=== PATIENT | female | born 2000 | race Caucasian/White ===

== ENCOUNTER 2023-11-18 06:40 | Emergency (ER) | payer MEDICAID, SELFPAY ==
[2023-11-18] VITALS (17 sets, daily range): BP systolic 107–125; BP diastolic 66–78; PULSE 84–110; RESP 17–34; TEMP 37.4; O2SAT 98–100
--- NOTE | ~2023-11-18 | CT_ITS ---
CT of the Abdomen and Pelvis: Indication: Abdominal pain Technique: 2.5 mm axial scans were obtained through the abdomen and pelvis following intravenous adm inistration of 100 cc of Omnipaque 350. Dose reduction technique was used on this scan by utilizing a utomated exposure control and iterative reconstruction technique. The dose-length product (DLP) was 5 29.60 mGy-cm. Findings: Scans through the lung bases are unremarkable. The liver, spleen, pancreas, adrenals and kidneys are within normal limits. Cholecystectomy clips are present. No evidence of aortic aneurysm. No lymphadenopathy. No bowel obstruction or bowel wall thickening. There is no evidence to suggest acute appendicitis. Images through the pelvis were performed. Urinary bladder unremarkable. 2.5 cm left ovarian cyst pres ent. No ascites. Impression: 2.5 cm left ovarian cyst. Reviewed, dictated and finalized at location . Impression: 2.5 cm left ovarian cyst.
[2023-11-18 07:14] LABS: Basophils Percent Auto 0.3 % (0.2-1.2); Eosinophils Absolute Auto 0.1 K/mm3 (0-0.3); Eosinophils Percent Auto 0.8 % (0-4.4); Hematocrit 39.5 % (37.0-47.0); Hemoglobin 12.6 g/dL (12.0-15.0); Immature Granulocyte Absolute 0.03 K/mm3 (0.00-0.031); Immature Granulocyte Percent A 0.3 % (0-0.5); Lymphocytes Absolute Auto 2.69 K/mm3 (0.9-3.2); Lymphocytes Percent Auto 22.8 % (18.3-44.2); Mean Corpuscular HGB Conc 31.9 g/dl (32-36); Mean Corpuscular Hemoglobin 27.7 pg (26-34); Mean Corpuscular Volume 86.8 fl (80-100); Mean Platelet Volume 10.2 fl (7.4-10.4); Monocytes Absolute Auto 1.2 K/mm3 (0.1-0.6); Monocytes Percent Auto 9.8 % (2.6-8.5); Neutrophils Absolute Auto 7.8 K/mm3 (1.3-6.7); Platelet Count Result 292 k/mm3 (150-375); Red Blood Count 4.55 M/mm3 (4.2-5.4); White Blood Count 11.8 K/mm3 (4.5-10.0)
[2023-11-18 07:23] LABS: Alanine Aminotransferase 11 U/L (6-35); Albumin Level 4.5 g/dL (3.5-5.1); Alkaline Phosphatase 77 U/L (38-126); Anion Gap 9 mmol/L (4-12); Aspartate Amino Transferase 18 U/L (14-36); Bilirubin,Total 0.5 mg/dL (0.2-1.3); Blood Urea Nitrogen 10 mg/dL (7-17); Calcium 8.9 mg/dL (8.4-10.2); Carbon Dioxide 23 mmol/L (22-30); Chloride 109 mmol/L (98-107); Estimated CRCL calculation 104 ml/min; Estimated Glomerular Filt Rate > 60; Glucose 117 mg/dL (65-110); Lipase 46 U/L (23-300); Potassium 3.7 mmol/L (3.4-5.0); Sodium 141 mmol/L (137-145)
[2023-11-18 07:27] LABS: Appearance Urine Cloudy (Clear); Bacteria Urine 1+ /hpf; Bilirubin Urine Negative (Negative); Blood Urine 3+ (Negative); Color Urine Dark Yellow (Yellow); Glucose Urine UA Negative (Negative); Ketones Urine Trace mg/dL (Negative); Leukocyte Esterase Ur 2+ LEU/UL (Negative); Need Manual Microscopic Reviewed; Nitrate Urine Negative (Negative); Non Pathogenic Casts 0-2; Protein Urine 1+ mg/dL (Negative); RBC Urine 21-50 /hpf (0-2); Specific Grav Ur 1.028 (1.001-1.035); Squamous Epithelial Cell Urine Moderate /hpf (Few); WBC Urine 21-50 /hpf (0-3); pH Urine 5.5 (5.0-9.0)
[2023-11-18 07:29] LABS: Add Urine Microscopic? YES
--- NOTE | 2023-11-18 08:01 | ED.ABDPAIN ---
HPI - Abdominal Pain General Chief Complaint: Abdominal Pain Stated Complaint: R flank/abd pain Time Seen by Provider: 11/18/23 07:58 Source: patient and family Mode of arrival: ambulatory Limitations: no limitations History of Present Illness HPI narrative: 23-year-old female presents with right upper quadrant and right back/flank pain. Patient states pain began in her right upper quadrant approximately 3 days ago and radiates to her back/right flank almost like she is wearing a half belt. No associated nausea, vomiting. No fevers or jaundice. Her last bowel movement was last night and she denies any diarrhea, constipation, or bleeding. She has irregular menstrual cycles at baseline and is not unusual for her to have 2 menstrual cycles per month. This has happened this month as she had period at the beginning of the month but also started another period Yesterday. She had a cholecystectomy she was approximately 19 years old in [facility] in [place] because she states her gallbladder wasn't working. She has been trialing 400 mg b.i.d. ibuprofen and Tylenol. she denies any hematuria, urgency, frequency, or dysuria. 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 Related Data Allergies Allergy/AdvReac Type Severity Reaction Status Date / Time coconut Allergy unknown Verified 11/18/23 08:10 latex Allergy unknown Verified 11/18/23 08:11 [facility] Surgical History Surgical History (Updated 11/18/23 @ 08:19 by Irena Pabon MD) History of cholecystectomy age 19yo, [facility] ([place]) History of tonsillectomy and adenoidectomy Exam Narrative: GENERAL: Well-appearing, well-nourished, and in no acute distress. HEAD: Normocephalic, atraumatic. EYES: Non injected, non icteric ENT: Nares clear, no rhinorrhea or epistaxis. NECK: Supple. CHEST: Speaking in full sentences. No respiratory distress. HEART: Regular rate and rhythm. . ABDOMEN: Soft, nondistended. Tenderness to palpation in right upper quadrant as well as to a lesser degree right lower quadrant. Possible CVA tenderness on the R. EXTREMITIES: Normal range of motion. No edema. SKIN: Warm, dry, no rash. NEURO: No focal deficits. Alert and oriented x3. PSYCH: Normal mood and affect. Course Vital Signs Vital signs: Vital Signs Temperature 99.4 F 11/18/23 06:54 Pulse Rate 100 11/18/23 06:54 Respiratory Rate 25 H 11/18/23 06:54 Blood Pressure 125/71 11/18/23 06:54 Pulse Oximetry 99 11/18/23 06:54 Oxygen Delivery Room Air 11/18/23 06:54 Temperature 99.4 F 11/18/23 06:54 Pulse Rate 84 11/18/23 09:30 Respiratory Rate 22 H 11/18/23 09:30 Blood Pressure 107/72 11/18/23 09:30 Pulse Oximetry 98 11/18/23 09:15 Oxygen Delivery Room Air 11/18/23 06:54 MDM - Abdominal Pain MDM Narrative Medical decision making narrative: Patient presents with RUQ pain radiating around to her back/right flank. In the emergency department she is initially afebrile with vital signs notable for mild tachypnea, I suspect this was due to pain. Patient has blood in urine. She is currently menstruating so this might be secondary to that. Only 1+ bacteria and with squamous cells however with WBCs and leukocyte esterase so will treat and give consideration that this is pyelonephritis. Imaging without clear etiology of patient's pain complaint based on location but notable for a left ovarian cyst. Differential Diagnosis Differential diagnosis: Likely abdominal pain, acute appendicitis, calculus of kidney, constipation, endometriosis, pancreatitis and other (kidney stone, pyelonephritis, biliary pathology, basilar pneumonia) Lab Data Attestation: I reviewed the patient's lab results. Lab results narrative: Mild leukocytosis, normal renal function. No anemia. 11/18/23 07:05 11/18/23 07:05 Labs: Lab Results
[2023-11-18] MEDS: MORPHINE SULFATE (*CRX) 4 MG/ML INJ IV PUSH (08:17)
[2023-11-18] MEDS: SODIUM CHLORIDE 0.9% IV 1,000 ML 999 ML IV CONT (08:18)
[2023-11-18] MEDS: KETOROLAC 15 MG/ML VIAL (*BKC) IV PUSH (09:22)
[2023-11-18] MEDS: ACETAMINOPHEN 325 MG TABLET 650 MG PO (09:22)
== END 2023-11-18 09:35 | disposition home or self-care (01) ==
PROVIDERS: Emergency Provider Student in an Organized Health Care Education/Training Program
DX: N12 Tubulo-interstitial nephritis, not specified as acute or chronic (principal); N83.202 Unspecified ovarian cyst, left side; D72.829 Elevated white blood cell count, unspecified; R10.11 Right upper quadrant pain; Z90.49 Acquired absence of other specified parts of digestive tract
CPT/HCPCS: 36415; 74177; 80053; 81001; 81025; 83690; 85025; 87086; 87088; 96365; 96375; 99284; A9270; J0696; J1885; J2270; J7030; Q9967

== ENCOUNTER 2024-04-30 03:22 | Emergency (ER) | payer BC, SELFPAY ==
--- NOTE | ~2024-04-30 | XR_ITS ---
EXAMINATION: XR hand LT min 3V DATE: 04/30/2024 03:57 INDICATION: Left hand injury with pain TECHNIQUE: Posteroanterior, oblique and lateral views of the left hand were obtained. COMPARISON: None. FINDINGS: Alignment is normal. No fracture. Joint spaces are normal. Soft tissues are unremarkable. IMPRESSION: 1. Negative left hand radiographs. Reviewed, dictated and finalized at location A.
[2024-04-30 03:25] VITALS: BP 132/74; PULSE 66; RESP 18; TEMP 36.7; O2SAT 98
--- NOTE | 2024-04-30 04:09 | ED.GENADULT ---
HPI - General Adult General Chief complaint: Extremity Injury, Lower Stated complaint: hand injury Time Seen by Provider: 04/30/24 03:50 History of Present Illness HPI narrative: patient is a 23-year-old female who presents emergency department with chief complaint of left hand pain. Patient reports that she was moving a couch in the count fell on her left hand patient reports pain the dorsum of the hand the patient reports the pain is worse with movement improved with rest. Related Data Allergies Allergy/AdvReac Type Severity Reaction Status Date / Time coconut Allergy unknown Verified 11/18/23 08:10 latex Allergy unknown Verified 11/18/23 08:11 Review of Systems Review of Systems: A 10 system review of systems was completed on the patient and is negative except for what is stated in the HPI. Nursing and ancillary documentation was reviewed. FOR[facility] Surgical History Surgical History History of cholecystectomy age 19yo, [facility] ([place]) History of tonsillectomy and adenoidectomy Exam Narrative: GENERAL: Well-appearing, well-nourished, and in no acute distress. HEAD: Normocephalic, atraumatic. EYES: PERRLA and EOMI. ENT: Nares clear, no rhinorrhea or epistaxis. Mucous membranes moist. NECK: Supple. CHEST: Clear to auscultation. No respiratory distress. HEART: Regular rate and rhythm. No murmur heard. Normal peripheral pulses. ABDOMEN: Soft, nontender, nondistended, normal active bowel sounds. EXTREMITIES: Normal range of motion There is bruising present to the dorsum of the left hand there is tenderness the anatomical snuffbox. No edema. SKIN: Warm, dry, no rash. NEURO: No focal deficits. Alert and oriented x3. PSYCH: Normal mood and affect. Course Vital Signs Vital signs: Vital Signs Temperature 36.7 C 04/30/24 03:25 Pulse Rate 66 04/30/24 03:25 Respiratory Rate 18 04/30/24 03:25 Blood Pressure 132/74 04/30/24 03:25 Pulse Oximetry 98 04/30/24 03:25 Oxygen Delivery Room Air 04/30/24 03:25 Temperature 36.7 C 04/30/24 03:25 Pulse Rate 66 04/30/24 03:25 Respiratory Rate 18 04/30/24 03:25 Blood Pressure 132/74 04/30/24 03:25 Pulse Oximetry 98 04/30/24 03:25 Oxygen Delivery Room Air 04/30/24 03:25 Medical Decision Making MDM Narrative Medical decision making narrative: differential diagnosis includes contusion, fracture, plain film x-rays of the left hand showed no evidence of fracture there is tenderness to palpation in the anatomical snuffbox due to this the patient was placed in thumb spica Vital Signs Vital Signs: Vital Signs Temperature 36.7 C 04/30/24 03:25 Pulse Rate 66 04/30/24 03:25 Respiratory Rate 18 04/30/24 03:25 Blood Pressure 132/74 04/30/24 03:25 Pulse Oximetry 98 04/30/24 03:25 Oxygen Delivery Room Air 04/30/24 03:25 Temperature 36.7 C 04/30/24 03:25 Pulse Rate 66 04/30/24 03:25 Respiratory Rate 18 04/30/24 03:25 Blood Pressure 132/74 04/30/24 03:25 Pulse Oximetry 98 04/30/24 03:25 Oxygen Delivery Room Air 04/30/24 03:25 Discharge Plan Discharge Clinical Impression: Contusion of left hand Patient Disposition: Home, Self-Care Condition: Stable Instructions: Antibiotic Form Additional Instructions: your placed in a splint because over having tenderness in the area of your scaphoid bone. Please follow-up with primary care and wear the splint we follow-up with primary care they will need to re-examine your wrist and you may need repeat x-rays Prescriptions: No Action sulfamethoxazole-trimethoprim [Bactrim] 400-80 mg tablet 1 tablet PO HS 5 Days Qty: 5 0RF ibuprofen 600 mg tablet 600 mg PO TID PRN (Reason: pain) Qty: 20 0RF acetaminophen 500 mg capsule 500 mg PO Q6H PRN (Reason: pain) Qty: 20 0RF Follow-up/Referrals: Leonardo Saul DO [Physician] - UNKNOWN,DOCTOR [Primary Care Provider] - Time of Disposition: 04:16
[2024-04-30 04:41] VITALS: BP 141/80; PULSE 95; RESP 17; O2SAT 99
== END 2024-04-30 04:42 | disposition home or self-care (01) ==
PROVIDERS: Emergency Provider Emergency Medicine
DX: S60.222A Contusion of left hand, initial encounter (principal); W22.8XXA Striking against or struck by other objects, initial encounter
CPT/HCPCS: 73130; 99283

== ENCOUNTER 2024-08-02 17:27 | Emergency (ER) | payer BC, SELFPAY ==
[2024-08-02 19:38] VITALS: BP 112/89; PULSE 85; RESP 18; TEMP 36.7; O2SAT 100
[2024-08-02 20:31] LABS: BEDSIDEPREGUCG Negative (Negative)
[2024-08-02 20:48] LABS: Add Urine Microscopic? YES; Appearance Urine Turbid (Clear); Bacteria Urine 4+ /hpf; Bilirubin Urine Negative (Negative); Blood Urine 2+ (Negative); Color Urine Dark Yellow (Yellow); Glucose Urine UA Negative (Negative); Ketones Urine 2+ mg/dL (Negative); Leukocyte Esterase Ur 2+ LEU/UL (Negative); Need Manual Microscopic Reviewed; Nitrate Urine Negative (Negative); Non Pathogenic Casts >20; Protein Urine 2+ mg/dL (Negative); Specific Grav Ur 1.038 (1.001-1.035); Squamous Epithelial Cell Urine Many /hpf (Few); WBC Urine 51-100 /hpf (0-3); pH Urine 5.5 (5.0-9.0)
--- NOTE | 2024-08-02 21:28 | PC.NURSE ---
Pt states she is no longer willing to wait and would like to leave. Pt encouraged to stay for MSE but declined.
== END 2024-08-02 21:28 | disposition left against medical advice (07) ==
PROVIDERS: Emergency Provider Student in an Organized Health Care Education/Training Program
DX: R10.32 Left lower quadrant pain (principal); R10.31 Right lower quadrant pain
CPT/HCPCS: 81001; 81025; 99199

== ENCOUNTER 2024-09-09 00:24 | Inpatient (IN) | payer BC, SELFPAY ==
[2024-09-09] VITALS (14 sets, daily range): BP systolic 104–139; BP diastolic 53–85; PULSE 66–93; RESP 14–20; TEMP 36.4–37.1; O2SAT 96–100
--- NOTE | ~2024-09-09 | CT_ITS ---
CT of the Abdomen and Pelvis: Indication: Abdominal pain Technique: 2.5 mm axial scans were obtained through the abdomen and pelvis following intravenous adm inistration of 100 cc of Omnipaque 350. Dose reduction technique was used on this scan by utilizing a utomated exposure control and iterative reconstruction technique. The dose-length product (DLP) was 5 09.57 mGy-cm. COMPARISON: 11/18/2023 Findings: Scans through the lung bases are unremarkable. The liver, spleen, pancreas, adrenals and kidneys are within normal limits. Cholecystectomy clips are present. No evidence of aortic aneurysm. No lymphadenopathy. No bowel obstruction or bowel wall thickening. Appendix is dilated to 10 mm, with mild periappendicea l stranding. No abscess or free air. Images through the pelvis were performed. Urinary bladder unremarkable. No pelvic mass seen. Trace pe lvic free fluid present Impression: Acute uncomplicated appendicitis, as detailed above. No abscess or free air. Reviewed, dictated and finalized at [facility]. Impression: Acute uncomplicated appendicitis, as detailed above. No abscess or free air.
--- OUTSIDE RECORDS SUMMARY | 2024-09-09 00:25 | XMS_ITS | Clinical Summary ---
Author Organization [facility] Address [address] [place] [address] Care Team Providers Care Dock Manager Name Role Phone Sebastian Clark MD Primary Care Provider [phone] Allergies Active Allergy Reactions Criticality Noted Date Comments Latex Hives Medium 08/02/2024 Ondansetron Vomiting Low 08/02/2024 Medications ibuprofen (ADVIL,MOTRIN) 600 mg tablet Take 1 tablet (600 mg total) by mouth every 6 (six) hours as needed for pain 30 tablet 08/03/2024 Active Encounters Date Type Department Care Team Description 08/03/2024 2:00 AM DIRECTOR TRANSITION - 08/03/2024 5:09 AM DIRECTOR TRANSITION Emergency [facility] Emergency Department [address] [place] [address] Stas Carey MD Abdominal pain (Primary Dx) Discharge Disposition: Discharge to home or self care from Last 3 Months Social History Tobacco Use Types Packs/Day Years Used Date Smoking Tobacco: Never Assessed Personal Safety Answer Date Recorded Have you ever been in or are you currently in a harmful physical or emotional relationship or is someone making you feel afraid or unsafe? Denies 08/02/2024 Comments Unknown Sex and Gender Information Value Date Recorded Sex Assigned at Not on file Legal Sex Female 10:08 PM DIRECTOR TRANSITION Gender Identity Not on file Sexual Orientation Not on file Last Filed Vital Signs Vital Sign Reading Time Taken Comments Blood Pressure 130/89 08/03/2024 2:45 AM DIRECTOR TRANSITION Pulse 86 08/03/2024 3:10 AM DIRECTOR TRANSITION Temperature 37 C (98.6 F) 08/03/2024 1:31 AM DIRECTOR TRANSITION Respiratory Rate 18 08/02/2024 10:17 PM DIRECTOR TRANSITION Oxygen Saturation 100% 08/03/2024 3:10 AM DIRECTOR TRANSITION Inhaled Oxygen Concentration - - Weight 68 kg (150 lb) 08/02/2024 10:14 PM DIRECTOR TRANSITION Height 162.6 cm (5' 4 ) 08/02/2024 10:14 PM DIRECTOR TRANSITION Body Mass Index 25.75 08/02/2024 10:14 PM DIRECTOR TRANSITION Plan of Treatment Health Maintenance Due Date Last Done Comments Cervical Cancer Screening 2002 Depression Screening 2002 Hepatitis C Screening 2002 DTaP/Tdap/Td Vaccine (1 - Tdap) 2013 Varicella Vaccines (1 of 2 - 13+ 2-dose series) 11/17/2015 HPV Vaccines (1 - 3-dose series) 2017 Meningococcal B Vaccine (1 o f 2 - Standard) 2018 Hepatitis B Screening 2020 Regular Well Visit/Exam 18-64 2020 Influenza Vaccine (#1) 2024 Meningococcal Vaccine Aged Out No susan chapo eligible based on patient's age to complete this topic Pneumococcal vaccine <65 Aged Out No longer eligible based on patient's age to complete this topic Procedures Procedure Name Priority Date/Time Associated Diagnosis Comments CT ABDOMEN PELVIS W CONTRAST ED 08/03/2024 4:03 AM DIRECTOR TRANSITION URINALYSIS, MICROSCOPIC ONLY Routine 08/03/2024 3:55 AM DIRECTOR TRANSITION URINE CULTURE Routine 08/03/2024 3:55 AM DIRECTOR TRANSITION URINALYSIS AND REFLEX TO MICROSCOPIC AND CULTURE Routine 08/03/2024 3:55 AM DIRECTOR TRANSITION POCT HCG, URINE Routine 08/03/2024 3:38 AM DIRECTOR TRANSITION EGFR STAT 08/03/2024 2:59 AM DIRECTOR TRANSITION DIFFERENTIAL AUTO STAT 08/03/2024 2:5 9 AM DIRECTOR TRANSITION CBC WITH AUTO DIFFERENTIAL STAT 08/03/2024 2:59 AM DIRECTOR TRANSITION COMPREHENSIVE METABOLIC PANEL STAT 08/03/2024 2:59 AM DIRECTOR TRANSITION from Last 3 Months Results * CT Abdomen Pelvis W Contrast (08/03/2024 4:03 AM DIRECTOR TRANSITION) Anatomical Region Laterality Modality Body N/A Computed Tomogra phy 08/03/2024 4:10 AM DIRECTOR TRANSITION Narrative 08/03/2024 4:39 AM DIRECTOR TRANSITION EXAM DESCRIPTION: CT ABDOMEN PELVIS W CONTRAST REASON FOR STUDY: Pelvic pain, acute, post-menopausal, pelvic pain Sudden onset severe lower abdominal pain radiating into lower back and pelvis following intercourse. TECHNIQUE: CT scan of the abdomen and pelvis performed with intravenous and without oral contrast using helical scanning technique with dynamic intravenous contrast injection. Reconstructed coronal and sagittal MPR images reviewed. All images stored on PACS. Automated exposure control was used as a dose optimization technique for this examination. CONTRAST TYPE/DOSE: 75mL of IOVERSOL 350 MG IODINE/ML INTRAVENOUS SYRINGE injected via intravenous COMPARISON: None. FINDINGS: LOWER CHEST: The lung bases are clear. LIVER: The liver is normal in attenuation without focal lesion. GALLBLADDER: Surgically absent. BILE DUCTS: No intrahepatic or extrahepatic ductal dilatation. PANCREAS: Normal. SPLEEN: Normal size. No focal lesions. ADRENALS: Normal. KIDNEYS/URINARY TRACT: No identified significant cystic or solid masses. No visualized stones. No hydronephrosis or hydroureter. Urinary bladder is unremarkable. VASCULATURE: No acute abnormality seen. No abdominal aortic aneurysm. GI: The stomach appears normal. There is no significant small bowel dilation or visible thickening. No gross colonic abnormalities identified. The appendix is normal. PERITONEUM/MESENTERY: No ascites or free air. LYMPH NODES: There are no enlarged lymph nodes seen by CT size criteria. REPRODUCTIVE: Uterus and adnexae are unremarkable. MUSCULOSKELETAL: No significant abnormality. OTHER: No other abnormality. IMPRESSION: No acute intra-abdominal or pelvic abnormality seen. THIS IS AN ELECTRONICALLY VERIFIED FINAL REPORT 08/03/2024 4:39 AM - Electronically signed by Jane Lam M.D. SN: Report ID: [id number] Reading Location: [id number] Procedure Note Jane Lam MD - 08/03/2024 EXAM DESCRIPTION: CT ABDOMEN PELVIS W CONTRAST REASON FOR STUDY: Pelvic pain, acute, post-menopausal, pelvic pain Sudden onset severe lower abdominal pain radiating into lower back andpelvis following intercourse. TECHNIQUE: CT scan of the abdomen and pelvis performed with intravenousand without oral contrast using helical scanning technique with dynamic intravenous contrast injection. Reconstructed coronal and sagittal MPRimages reviewed. All images stored on PACS. Automated exposure control was usedas a dose optimization technique for this examination. CONTRAST TYPE/DOSE: 75mL of IOVERSOL 350 MG IODINE/ML INTRAVENOUSSYRINGE injected via intravenous COMPARISON: None. FINDINGS: LOWER CHEST: The lung bases are clear. LIVER: The liver is normal in attenuation without focal lesion. GALLBLADDER: Surgically absent. BILE DUCTS: No intrahepatic or extrahepatic ductal dilatation. PANCREAS: Normal. SPLEEN: Normal size. No focal lesions. ADRENALS: Normal. KIDNEYS/URINARY TRACT: No identified significant cystic or solid masses.No visualized stones. No hydronephrosis or hydroureter. Urinary bladder is unremarkable. VASCULATURE: No acute abnormality seen. No abdominal aortic aneurysm. GI: The stomach appears normal. There is no significant small bowel dilation or visible thickening. No gross colonic abnormalitiesidentified. The appendix is normal. PERITONEUM/MESENTERY: No ascites or free air. LYMPH NODES: There are no enlarged lymph nodes seen by CT size criteria. REPRODUCTIVE: Uterus and adnexae are unremarkable. MUSCULOSKELETAL: No significant abnormality. OTHER: No other abnormality. IMPRESSION: No acute intra-abdominal or pelvic abnormality seen. THIS IS AN ELECTRONICALLY VERIFIED FINAL REPORT 08/03/2024 4:39 AM - Electronically signed by Jane Lam M.D. SN: SN Report ID: [id number] Reading Location: [place] [address] Stas Carey MD [facility] CT PROCEDURES Final Result * (ABNORMAL) Urinalysis reflex to microscopic and culture Urine (08/03/2024 3:55 AM DIRECTOR TRANSITION) Color, ur Yellow Yellow Clarity, ur Turbid(A) Clear [facility] ([place]) Specific gravity, ur 1.028 1.003 - 1.030 [facility] ([place]) pH, urine 5.5 [facility] ([place]) Comment: Interpretive Data U rine pH is affected by diet, medications, systemic acid-base disturbances, and renal tubular function. pH may affect urinary stone formation. For example, urine pH below 6.0 may help reduce the tendency for calcium phosphate stones and pH greater than 6.0 may reduce the tendency for uric acid stone formation. Source: [facility] Current Interpretive Data was last revised on 2017 Protein, ur ql 1+(A) Negative [facility] ([place]) Glucose, ur ql Negative Negative [facility] ([place]) Ketones, ur 1+(A) Negative [facility] ([place]) Bilirubin, ur Negative Negative [facility] ([place]) Blood, ur 1+(A) Negative [facility] ([place]) Urobilinogen, ur <2.0 <2.0 mg/dL [facility] ([place]) Nitrite, ur Negative Negative [facility] ([place]) Leukocyte esterase, ur 4+(A) Negative [facility] ([place]) UA reflex comment Reflex to microscopic UA will be performed. [facility] ([place]) Urine 08/03/2024 3:55 AM DIRECTOR TRANSITION 08/03/2024 3:58 AM DIRECTOR TRANSITION us Stas Carey MD LAB MICROBIOLOGY - GENERAL ORD ERABLES Final Result [facility] ([place]) 1 [facility] Department [place] [address] * (ABNORMAL) Urinalysis, microscopic only (08/03/2024 3:55 AM DIRECTOR TRANSITION) WBC, ur 21-50(A) 0 - 5 /HPF RBC, ur 6-10(A) 0 - 2 /HPF [facility] ([place]) Epithelial cells, squamous, ur 21-50(A) 0 - 5 /HPF [facility] ([place]) Bacteria, ur 2+(A) [facility] ([place]) Mucous, ur Present(A) [facility] ([place]) Culture Reflex Comment Reflex to urine culture will be performed. [facility] ([place]) Urine 08/03/2024 3:55 AM DIRECTOR TRANSITION 08/03/2024 3:58 AM DIRECTOR TRANSITION Stas Carey MD LAB URINE ORDERABLES Final Res ult Performing Organization Address [facility] Co de Phone Number [facility] ([place]) 1 [facility] [place] [address] * Urine culture Urine (08/03/2024 3:55 AM DIRECTOR TRANSITION) Report Final Report: Less than 100,000 colonies/mL (clinically insignificant growth based on current clinical standards) Comment:Testing performed by : [facility], [address] [facility] [place] [address] Organism (CLINICALLY INSIGNIFICANT GROWTH [facility] ([place]) Urine 08/03/2024 3:55 AM DIRECTOR TRANSITION 08/03/2024 6:30 AM DIRECTOR TRANSITION Narrative [facility] ([place]) - 08/04/2024 11:19 AM DIRECTOR TRANSITION Urine culture reflexed based upon urinalysis results. Testing performed by [facility] ([phone]) Stas Carey MD LAB MICROBIOLOGY - GENERAL ORD ERABLES Final Result Performing Organization Address [facility] Co de Phone Number [facility] ([place]) [address] [place] [address] * POCT hCG, urine (08/03/2024 3:38 AM DIRECTOR TRANSITION) HCG, ur, POC Negative Negative Lot Number [id number] QC Backgroud Clear Acceptable QC Control Line Acceptable Urine 08/03/2024 3:38 AM DIRECTOR TRANSITION Stas Carey MD POINT OF CARE TEST ORDERABLES Final Result * eGFR (08/03/2024 2:59 AM DIRECTOR TRANSITION) eGFR >90 >=60 mL/min/1. 73 m2 Comment: Interpretive Data Reference Interval Normal >/= 90 mL/min/1.73m2 Mildly decreased* 60 - 89 mL/min/1.73m2 Mildly to moderately decreased 45 - 59 mL/min/1.73m2 Moderately to severely decreased 30 - 44 mL/min/1.73m2 Severely decreased 15 - 29 mL/min/1.73m2 Kidney Failure < 15 mL/min/1.73m2 *Relative to young adult level Estimated glomerular filtration rate is determined by the 2020 CKD-EPI equation recommended by the National Kidney Foundation (A Unifying Approach to GFR Estimation: Recommendations of the NKF-ASK Task Force on Reassessing the Inclusion of Race in Diagnosing Kidney Disease, JASN 2020). The CKD-EPI equation should not be used for patients with unstable renal function and has not been validated in children and those over 70. Current interpretive data was last reviewed 2021. Blood 08/03/2024 2:59 AM DIRECTOR TRANSITION 08/03/2024 3:24 AM DIRECTOR TRANSITION us Stas Carey MD LAB BLOOD ORDERABLES Final Res ult [facility] ([place]) 1 [facility] Department [place] [address] * (ABNORMAL) Differential, auto (08/03/2024 2:59 AM DIRECTOR TRANSITION) Neutrophil abs 6.7(H) 1.5 - 6.5 K/cumm Imm gran abs 0.0 0.0 - 0.1 K/cumm [facility] ([place]) Lymphocyte abs 3.9(H) 0.8 - 3.3 K/cumm [facility] ([place]) Monocyte abs 0.9(H) 0.2 - 0.8 K/cumm [facility] ([place]) Eosinophil abs 0.0 0.0 - 0.5 K/cumm [facility] ([place]) Basophil abs 0.1 0.0 - 0.1 K/cumm [facility] ([place]) Neutrophil pct 57.7 % [facility] ([place]) Comment: Interpretive Data Percent cell count reference ranges are not reported, since discordance with absolute values may lead to misinterpretation of CBC data. Current Interpretive Data was last revised on 2017. Imm gran pct 0.3 % [facility] ([place]) Comment: Interpretive Data Percent cell count reference ranges are not reported, since discordance with absolute values may lead to misinterpretation of CBC data. Current Interpretive Data was last revised on 2017. Lymphocyte pct 33.5 % [facility] ([place]) Comment: Interpretive Data Percent cell count reference ranges are not reported, since discordance with absolute values may lead to misinterpretation of CBC data. Current Interpretive Data was last revised on 2017. Monocyte pct 7.8 % [facility] ([place]) Comment: Interpretive Data Percent cell count reference ranges are not reported, since discordance with absolute values may lead to misinterpretation of CBC data. Current Interpretive Data was last revised on 2017. Eosinophil pct 0.3 % [facility] ([place]) Comment: Interpretive Data Percent cell count reference ranges are not reported, since discordance with absolute values may lead to misinterpretation of CBC data. Current Interpretive Data was last revised on 2017. Basophil pct 0.4 % [facility] ([place]) Comment: Interpretive Data Percent cell count reference ranges are not reported, since discordance with absolute values may lead to misinterpretation of CBC data. Current Interpretive Data was last revised on 2017. Blood 08/03/2024 2:59 AM DIRECTOR TRANSITION 08/03/2024 3:24 AM DIRECTOR TRANSITION us Stas Carey MD LAB BLOOD ORDERABLES Final Res ult [facility] ([place]) 1 [facility] Department [place] [address] * (ABNORMAL) CBC with auto differential (08/03/2024 2:59 AM DIRECTOR TRANSITION) WBC 11.5(H) 3.8 - 9.9 K/cumm Hgb 14.2 11.9 - 15.5 g/dL [facility] ([place]) Hct 43.3 35.6 - 45.5 % [facility] ([place]) Plt 440(H) 150 - 400 K/cumm [facility] ([place]) MPV 11.3 9.1 - 12.3 fL [facility] ([place]) RBC 5.03 3.90 - 5.20 M/cumm [facility] ([place]) MCV 86.1 81.3 - 96.4 fL [facility] ([place]) MCH 28.2 27.1 - 33.3 pg [facility] ([place]) MCHC 32.8 32.3 - 35.7 g/dL [facility] ([place]) RDW CV 13.2 11.1 - 14.9 % [facility] ([place]) RDW SD 40.6 35.7 - 48.1 fL [facility] ([place]) NRBC abs 0.00 0.00 - 0.01 K/cumm [facility] ([place]) Blood 08/03/2024 2:59 AM DIRECTOR TRANSITION 08/03/2024 3:24 AM DIRECTOR TRANSITION Stas Carey MD LAB BLOOD ORDERABLES Final Res ult [facility] ([place]) 1 [facility] Department of Laboratories [place] [id number] * (ABNORMAL) Comprehensive metabolic panel (08/03/2024 2:59 AM DIRECTOR TRANSITION) Sodium 140 135 - 145 mmol/L Potassium, pl 3.9 3.3 - 4.9 mmol/L [facility] ([place]) Comment:Moderately Hemolyzed Specimen. Results may be affected. Chloride 102 97 - 110 mmol/L [facility] ([place]) CO2 21(L) 22 - 32 mmol/L [facility] ([place]) Anion gap 17(H) 2 - 15 mmol/L [facility] ([place]) BUN 7 6 - 25 mg/dL [facility] ([place]) Creatinine 0.73 0.60 - 1.10 mg/dL [facility] ([place]) Glucose 81 70 - 199 mg/dL [facility] ([place]) Comment: Interpretive Data Fasting glucose >/= 126 mg/dl is diagnostic for diabetes. Fasting is defined as no caloric intake for at least 8 hours. Fasting glucose between 100 mg/dl to 125 mg/dl is diagnostic of prediabetes. In a patient with classic symptoms of hyperglycemia or hyperglycemic crisis, a random glucose >/= 200 mg/dl is diagnostic for diabetes. In the absence of unequivocal hyperglycemia, results should be confirmed by repeat testing. The classification and Diagnosis of Diabetes Diabetes Care 2021; 46: S19-S40. Current interpretive data was last revised 2022. Calcium 9.9 8.5 - 10.3 mg/dL [facility] ([place]) Bilirubin, total 0.8 0.1 - 1.2 mg/dL [facility] ([place]) Protein, pl 8.6(H) 6.5 - 8.5 g/dL [facility] ([place]) Albumin 5.3(H) 3.5 - 5.0 g/dL [facility] ([place]) Alk phos 88 40 - 130 Units/L [facility] ([place]) ALT 8 7 - 45 Units/L [facility] ([place]) Comment: Hemolysis present. Results may be affected. Moderately Hemolyzed Specimen AST 23 10 - 45 Units/L [facility] ([place]) Comment: Hemolysis present. Results may be affected. Moderately Hemolyzed Specimen Blood 08/03/2024 2:59 AM DIRECTOR TRANSITION 08/03/2024 3:24 AM DIRECTOR TRANSITION us Stas Carey MD LAB BLOOD ORDERABLES Final Res ult [facility] ([place]) 1 [facility] Department [place] [address] from Last 3 Months Insurance [facility] [employer] [facility] Care Teams Dock Manager Relationship Specialty Start Date End Date Sebastian Clark MD [address] [place] [id number] PCP - General Family Medicine 08/03/24
--- OUTSIDE RECORDS SUMMARY | 2024-09-09 00:26 | XMS_ITS | Referral Summary ---
Author Organization [facility] Address [address] [place] [address] Care Team Providers Care Retail Product Advisor Name Role Phone Sebastian Clark MD Primary Care Provider [phone] Encounters Date Type Department Care Team Description 08/03/2024 2:00 AM SUPERVISOR OF RESEARCH - 08/03/2024 5:09 AM SUPERVISOR OF RESEARCH Emergency [facility] Emergency Department [address] [place] [address] Stas Carey MD Abdominal pain (Primary Dx) Discharge Disposition: Discharge to home or self care from Last 3 Months Allergies Active Allergy Reactions Criticality Noted Date Comments Latex Hives Medium 08/02/2024 Ondansetron Vomiting Low 08/02/2024 Medications ibuprofen (ADVIL,MOTRIN) 600 mg tablet Take 1 tablet (600 mg total) by mouth every 6 (six) hours as needed for pain 30 tablet 08/03/2024 Active Social History Tobacco Use Types Packs/Day Years [...] on file Legal Sex Female 10:08 PM SUPERVISOR OF RESEARCH Gender Identity Not on file Sexual Orientation Not on file Last Filed Vital Signs Vital Sign Reading Time Taken Comments Blood Pressure 130/89 08/03/2024 2:45 AM SUPERVISOR OF RESEARCH Pulse 86 08/03/2024 3:10 AM SUPERVISOR OF RESEARCH Temperature 37 C (98.6 F) 08/03/2024 1:31 AM SUPERVISOR OF RESEARCH Respiratory Rate 18 08/02/2024 10:17 PM SUPERVISOR OF RESEARCH Oxygen Saturation 100% 08/03/2024 3:10 AM SUPERVISOR OF RESEARCH Inhaled Oxygen Concentration - - Weight 68 kg (150 lb) 08/02/2024 10:14 PM SUPERVISOR OF RESEARCH Height 162.6 cm (5' 4 ) 08/02/2024 10:14 PM SUPERVISOR OF RESEARCH Body Mass Index 25.75 08/02/2024 10:14 PM SUPERVISOR OF RESEARCH Plan of Treatment Not on file Procedures Procedure Name Priority Date/Time Associated Diagnosis Comments CT ABDOMEN PELVIS W CONTRAST ED 08/03/2024 4:03 AM SUPERVISOR OF RESEARCH URINALYSIS, MICROSCOPIC ONLY Routine 08/03/2024 3:55 AM SUPERVISOR OF RESEARCH URINE CULTURE Routine 08/03/2024 3:55 AM SUPERVISOR OF RESEARCH URINALYSIS AND REFLEX TO MICROSCOPIC AND CULTURE Routine 08/03/2024 3:55 AM SUPERVISOR OF RESEARCH POCT HCG, URINE Routine 08/03/2024 3:38 AM SUPERVISOR OF RESEARCH EGFR STAT 08/03/2024 2:59 AM SUPERVISOR OF RESEARCH DIFFERENTIAL AUTO STAT 08/03/2024 2:5 9 AM SUPERVISOR OF RESEARCH CBC WITH AUTO DIFFERENTIAL STAT 08/03/2024 2:59 AM SUPERVISOR OF RESEARCH COMPREHENSIVE METABOLIC PANEL STAT 08/03/2024 2:59 AM SUPERVISOR OF RESEARCH from Last 3 Months Results * CT Abdomen Pelvis W Contrast (08/03/2024 4:03 AM SUPERVISOR OF RESEARCH) Anatomical Region Laterality Modality Body N/A Computed Tomogra phy 08/03/2024 4:10 AM SUPERVISOR OF RESEARCH Narrative 08/03/2024 4:39 AM SUPERVISOR OF RESEARCH EXAM DESCRIPTION: CT ABDOMEN PELVIS W CONTRAST [...] Jane Lam M.D. SN: SN Report ID: [id number] Reading Location: [place] [address] Procedure Note Jane Lam MD - 08/03/2024 [...] Jane Lam M.D. SN: SN Report ID: [id number] Reading Location: [place] [address] Stas Carey MD IMG CT PROCEDURES Final Result * (ABNORMAL) Urinalysis reflex to microscopic and culture Urine (08/03/2024 3:55 AM SUPERVISOR OF RESEARCH) Color, ur Yellow Yellow Clarity, ur Turbid(A) Clear [facility] ([place]) Specific gravity, ur 1.028 1.003 [...] tendency for uric acid stone formation. Source: [employer] Current Interpretive Data was last revised on 2017 Protein, ur ql 1+(A) Negative [facility] ([place]) Glucose, ur ql Negative Negative [facility] ([place]) Ketones, ur 1+(A) Negative [facility] ([place]) Bilirubin, ur Negative Negative [facility] ([place]) Blood, ur 1+(A) Negative [facility] ([place]) Urobilinogen, ur <2.0 <2.0 mg/dL [facility] ([place]) Nitrite, ur Negative Negative [facility] ([place]) Leukocyte esterase, ur 4+(A) Negative [facility] ([place]) UA reflex comment Reflex to microscopic UA will be performed. [facility] ([place]) Urine 08/03/2024 3:55 AM SUPERVISOR OF RESEARCH 08/03/2024 3:58 AM SUPERVISOR OF RESEARCH Stas Carey MD LAB MICROBIOLOGY - GENERAL ORD ERABLES Final Result Performing Organization Address [facility] Co de Phone Number SHALINI JOYNER ([place]) 1 [facility] [employer] [address] * (ABNORMAL) Urinalysis, microscopic only (08/03/2024 3:55 AM SUPERVISOR OF RESEARCH) WBC, ur 21-50(A) 0 - 5 /HPF RBC, ur 6-10(A) 0 - 2 /HPF [facility] ([place]) Epithelial cells, squamous, ur 21-50(A) 0 - 5 /HPF [facility] ([place]) Bacteria, ur 2+(A) [facility] ([place]) Mucous, ur Present(A) [facility] ([place]) Culture Reflex Comment Reflex to urine culture will be performed. [facility] ([place]) Urine 08/03/2024 3:55 AM SUPERVISOR OF RESEARCH 08/03/2024 3:58 AM SUPERVISOR OF RESEARCH Stas Carey MD LAB URINE ORDERABLES Final Res ult Performing Organization Address City/[facility]/ZIP Co de Phone Number SHALINI JOYNER ([place]) 1 [facility] [employer] [address] * Urine culture Urine (08/03/2024 3:55 AM SUPERVISOR OF RESEARCH) Report Final Report: Less than 100,000 colonies/mL (clinically insignificant growth based on current clinical standards) Comment:Testing performed by : [facility], 1 [facility], [place]., [address] Organism (CLINICALLY INSIGNIFICANT GROWTH SHALINI JOYNER ([place]) Urine 08/03/2024 3:55 AM SUPERVISOR OF RESEARCH 08/03/2024 6:30 AM SUPERVISOR OF RESEARCH Narrative HEAVENASHLEY JOYNER JESE) - 08/04/2024 11:19 AM SUPERVISOR OF RESEARCH Urine culture reflexed based upon urinalysis results. Testing performed by [facility] ([phone]) us Stas Carey MD LAB MICROBIOLOGY - GENERAL ORD ERABLES Final Result HEAVENASHLEY JOYNER DIANEN) 1 [facility] [place] [address] * POCT hCG, urine (08/03/2024 3:38 AM SUPERVISOR OF RESEARCH) HCG, ur, POC Negative Negative Lot Number [id number] QC Backgroud Clear Acceptable QC Control Line Acceptable Urine 08/03/2024 3:38 AM SUPERVISOR OF RESEARCH us Stas Carey MD POINT OF CARE TEST ORDERABLES Final Result * eGFR (08/03/2024 2:59 AM SUPERVISOR OF RESEARCH) eGFR >90 >=60 mL/min/1. 73 m2 Comment: [...] last reviewed 2021. Blood 08/03/2024 2:59 AM SUPERVISOR OF RESEARCH 08/03/2024 3:24 AM SUPERVISOR OF RESEARCH us Stas Carey MD LAB BLOOD ORDERABLES Final Res ult SHALINI [facility] ([place]) 1 [facility] [place] [address] * (ABNORMAL) Differential, auto (08/03/2024 2:59 AM SUPERVISOR OF RESEARCH) Neutrophil abs 6.7(H) 1.5 - 6.5 K/cumm Imm gran abs 0.0 0.0 - 0.1 K/cumm [facility] ([place]) Lymphocyte abs 3.9(H) 0.8 - 3.3 K/cumm [facility] ([place]) Monocyte abs 0.9(H) 0.2 - 0.8 K/cumm [facility] ([place]) Eosinophil abs 0.0 0.0 - 0.5 K/cumm [facility] ([place]) Basophil abs 0.1 0.0 - 0.1 K/cumm [facility] ([place]) Neutrophil pct 57.7 % [facility] ([place]) Comment: Interpretive Data Percent cell count reference [...] revised on 2017. Blood 08/03/2024 2:59 AM SUPERVISOR OF RESEARCH 08/03/2024 3:24 AM SUPERVISOR OF RESEARCH us Stas Carey MD LAB BLOOD ORDERABLES Final Res ult [facility] ([place]) 1 [facility] [place] [address] * (ABNORMAL) CBC with auto differential (08/03/2024 2:59 AM SUPERVISOR OF RESEARCH) WBC 11.5(H) 3.8 - 9.9 K/cumm Hgb 14.2 11.9 - 15.5 g/dL [facility] ([place]) Hct 43.3 35.6 - 45.5 [...] RDW SD 40.6 35.7 - 48.1 fL [facility] ([place]) NRBC abs 0.00 0.00 - 0.01 K/cumm [facility] ([place]) Blood 08/03/2024 2:59 AM SUPERVISOR OF RESEARCH 08/03/2024 3:24 AM SUPERVISOR OF RESEARCH us Stas Carey MD LAB BLOOD ORDERABLES Final Res ult [facility] ([place]) 1 [facility] [place] [address] * (ABNORMAL) Comprehensive metabolic panel (08/03/2024 2:59 AM SUPERVISOR OF RESEARCH) Sodium 140 135 - 145 mmol/L Potassium, pl 3.9 3.3 - 4.9 mmol/L [facility] ([place]) Comment:Moderately Hemolyzed Specimen. Results may be affected. Chloride 102 97 - 110 mmol/L [facility] ([place]) CO2 21(L) 22 - 32 mmol/L [facility] ([place]) Anion gap 17(H) 2 - 15 mmol/L [facility] ([place]) BUN 7 6 - 25 mg/dL [facility] ([place]) Creatinine 0.73 0.60 - 1.10 mg/dL [facility] ([place]) Glucose 81 70 - 199 mg/dL [facility] ([place]) Comment: Interpretive Data Fasting glucose [...] Moderately Hemolyzed Specimen Blood 08/03/2024 2:59 AM SUPERVISOR OF RESEARCH 08/03/2024 3:24 AM SUPERVISOR OF RESEARCH us Stas Carey MD LAB BLOOD ORDERABLES Final Res ult [facility] ([place]) 1 [facility] [place] [address] from Last 3 Months Insurance [facility] Care Teams Retail Product Advisor Relationship Specialty Start Date End Date Sebastian Clark MD [address] [place] [address] PCP - General Family Medicine 08/03/24
[2024-09-09 01:36] LABS: BEDSIDEPREGUCG Negative (Negative)
--- OUTSIDE RECORDS SUMMARY | 2024-09-09 01:42 | XMS_ITS | Referral Summary ---
Author Organization [facility] Address [address] [place] [address] Care Team Providers Care Commercial Maintenance Technician Name Role Phone Sebastian Clark MD Primary Care Provider [phone] Encounters Date Type Department Care Team Description 08/03/2024 2:00 AM LEATHER SORTER - 08/03/2024 5:09 AM LEATHER SORTER Emergency [facility] Emergency Department 1 [place] [address] Stas Carey MD Abdominal pain (Primary Dx) [...] on file Legal Sex Female 10:08 PM LEATHER SORTER Gender Identity Not on file Sexual Orientation Not on file Last Filed Vital Signs Vital Sign Reading Time Taken Comments Blood Pressure 130/89 08/03/2024 2:45 AM LEATHER SORTER Pulse 86 08/03/2024 3:10 AM LEATHER SORTER Temperature 37 C (98.6 F) 08/03/2024 1:31 AM LEATHER SORTER Respiratory Rate 18 08/02/2024 10:17 PM LEATHER SORTER Oxygen Saturation 100% 08/03/2024 3:10 AM LEATHER SORTER Inhaled Oxygen Concentration - - Weight 68 kg (150 lb) 08/02/2024 10:14 PM LEATHER SORTER Height 162.6 cm (5' 4 ) 08/02/2024 10:14 PM LEATHER SORTER Body Mass Index 25.75 08/02/2024 10:14 PM LEATHER SORTER Plan of Treatment Not on file Procedures Procedure Name Priority Date/Time Associated Diagnosis Comments CT ABDOMEN PELVIS W CONTRAST ED 08/03/2024 4:03 AM LEATHER SORTER URINALYSIS, MICROSCOPIC ONLY Routine 08/03/2024 3:55 AM LEATHER SORTER URINE CULTURE Routine 08/03/2024 3:55 AM LEATHER SORTER URINALYSIS AND REFLEX TO MICROSCOPIC AND CULTURE Routine 08/03/2024 3:55 AM LEATHER SORTER POCT HCG, URINE Routine 08/03/2024 3:38 AM LEATHER SORTER EGFR STAT 08/03/2024 2:59 AM LEATHER SORTER DIFFERENTIAL AUTO STAT 08/03/2024 2:5 9 AM LEATHER SORTER CBC WITH AUTO DIFFERENTIAL STAT 08/03/2024 2:59 AM LEATHER SORTER COMPREHENSIVE METABOLIC PANEL STAT 08/03/2024 2:59 AM LEATHER SORTER from Last 3 Months Results * CT Abdomen Pelvis W Contrast (08/03/2024 4:03 AM LEATHER SORTER) Anatomical Region Laterality Modality Body N/A Computed Tomogra phy 08/03/2024 4:10 AM LEATHER SORTER Narrative 08/03/2024 4:39 AM LEATHER SORTER EXAM DESCRIPTION: CT ABDOMEN PELVIS W CONTRAST [...] Jane Lam M.D. SN: SN Report ID: [id number] Reading Location: [place] [address] Procedure Note Jane Lam MD - 08/03/2024 [...] Jane Lam M.D. SN: SN Report ID: [id number] Reading Location: [place] [address] Stas Carey MD IMG CT PROCEDURES Final Result * (ABNORMAL) Urinalysis reflex to microscopic and culture Urine (08/03/2024 3:55 AM LEATHER SORTER) Color, ur Yellow Yellow Clarity, ur Turbid(A) [...] tendency for uric acid stone formation. Source: [employer] Current Interpretive Data was last revised on 2017 Protein, ur ql 1+(A) Negative [facility] ([place]) Glucose, ur ql Negative Negative [facility] ([place]) Ketones, ur 1+(A) Negative [facility] ([place]) Bilirubin, ur Negative Negative [facility] ([place]) Blood, ur 1+(A) Negative [facility] ([place]) Urobilinogen, ur <2.0 <2.0 mg/dL [facility] ([place]) Nitrite, ur Negative Negative [facility] ([place]) Leukocyte esterase, ur 4+(A) Negative [facility] ([place]) UA reflex comment Reflex to microscopic UA will be performed. [facility] ([place]) Urine 08/03/2024 3:55 AM LEATHER SORTER 08/03/2024 3:58 AM LEATHER SORTER Stas Carey MD LAB MICROBIOLOGY - GENERAL ORD ERABLES Final Result Performing Organization Address [facility] Co de Phone Number SHALINI JOYNER ([place]) 1 [facility] [place] [address] * (ABNORMAL) Urinalysis, microscopic only (08/03/2024 3:55 AM LEATHER SORTER) WBC, ur 21-50(A) 0 - 5 /HPF RBC, ur 6-10(A) 0 - 2 /HPF [facility] ([place]) Epithelial cells, squamous, ur 21-50(A) 0 - 5 /HPF [facility] ([place]) Bacteria, ur 2+(A) [facility] ([place]) Mucous, ur Present(A) [facility] ([place]) Culture Reflex Comment Reflex to urine culture will be performed. [facility] ([place]) Urine 08/03/2024 3:55 AM LEATHER SORTER 08/03/2024 3:58 AM LEATHER SORTER Stas Carey MD LAB URINE ORDERABLES Final Res ult Performing Organization Address City/[facility]/ZIP Co de Phone Number SHALINI JOYNER ([place]) 1 [facility] [place] [address] * Urine culture Urine (08/03/2024 3:55 AM LEATHER SORTER) Report Final Report: Less than 100,000 colonies/mL (clinically insignificant growth based on current clinical standards) Comment:Testing performed by : [facility], 1 [facility], [place]., [address] Organism (CLINICALLY INSIGNIFICANT GROWTH SHALINI JOYNER ([place]) Urine 08/03/2024 3:55 AM LEATHER SORTER 08/03/2024 6:30 AM LEATHER SORTER Narrative HEAVENASHLEY JOYNER JESE) - 08/04/2024 11:19 AM LEATHER SORTER Urine culture reflexed based upon urinalysis results. Testing performed by [facility] ([phone]) us Stas Carey MD LAB MICROBIOLOGY - GENERAL ORD ERABLES Final Result HEAVENASHLEY JOYNER DIANEN) 1 [facility] [place] [address] * POCT hCG, urine (08/03/2024 3:38 AM LEATHER SORTER) HCG, ur, POC Negative Negative Lot Number [id number] QC Backgroud Clear Acceptable QC Control Line Acceptable Urine 08/03/2024 3:38 AM LEATHER SORTER us Stas Carey MD POINT OF CARE TEST ORDERABLES Final Result * eGFR (08/03/2024 2:59 AM LEATHER SORTER) eGFR >90 >=60 mL/min/1. 73 m2 Comment: [...] last reviewed 2021. Blood 08/03/2024 2:59 AM LEATHER SORTER 08/03/2024 3:24 AM LEATHER SORTER us Stas Carey MD LAB BLOOD ORDERABLES Final Res ult SHALINI [facility] ([place]) 1 [facility] [place] [address] * (ABNORMAL) Differential, auto (08/03/2024 2:59 AM LEATHER SORTER) Neutrophil abs 6.7(H) 1.5 - 6.5 K/cumm Imm gran abs 0.0 0.0 - 0.1 K/cumm [facility] ([place]) Lymphocyte abs 3.9(H) 0.8 - 3.3 K/cumm [facility] ([place]) Monocyte abs 0.9(H) 0.2 - 0.8 K/cumm [facility] ([place]) Eosinophil abs 0.0 0.0 - 0.5 K/cumm [facility] ([place]) Basophil abs 0.1 0.0 - 0.1 K/cumm [facility] ([place]) Neutrophil pct 57.7 % [facility] ([place]) Comment: Interpretive Data Percent cell count reference [...] revised on 2017. Blood 08/03/2024 2:59 AM LEATHER SORTER 08/03/2024 3:24 AM LEATHER SORTER us Stas Carey MD LAB BLOOD ORDERABLES Final Res ult [facility] ([place]) 1 [facility] [place] [address] * (ABNORMAL) CBC with auto differential (08/03/2024 2:59 AM LEATHER SORTER) WBC 11.5(H) 3.8 - 9.9 K/cumm Hgb [...] [facility] ([place]) Blood 08/03/2024 2:59 AM LEATHER SORTER 08/03/2024 3:24 AM LEATHER SORTER us Stas Carey MD LAB BLOOD ORDERABLES Final Res ult [facility] ([place]) 1 [facility] [place] [address] * (ABNORMAL) Comprehensive metabolic panel (08/03/2024 2:59 AM LEATHER SORTER) Sodium 140 135 - 145 mmol/L Potassium, [...] Moderately Hemolyzed Specimen Blood 08/03/2024 2:59 AM LEATHER SORTER 08/03/2024 3:24 AM LEATHER SORTER us Stas Carey MD LAB BLOOD ORDERABLES Final Res ult [facility] ([place]) 1 [facility] [place] [address] from Last 3 Months Insurance [facility] Care Teams Commercial Maintenance Technician Relationship Specialty Start Date End Date Sebastian Clark MD [address] [place] [address] PCP - General Family Medicine 08/03/24
--- OUTSIDE RECORDS SUMMARY | 2024-09-09 01:42 | XMS_ITS | Clinical Summary ---
Author Organization [facility] Address [address] [place] [address] Care Team Providers Care Nail Specialist Name Role Phone Sebastian Clark MD Primary Care Provider [phone] Allergies Active Allergy Reactions Criticality Noted Date Comments Latex Hives Medium 08/02/2024 Ondansetron Vomiting Low 08/02/2024 Medications ibuprofen (ADVIL,MOTRIN) 600 mg tablet Take 1 tablet (600 mg total) by mouth every 6 (six) hours as needed for pain 30 tablet 08/03/2024 Active Encounters Date Type Department Care Team Description 08/03/2024 2:00 AM ENGINEER [facility]ILS - 08/03/2024 5:09 AM [facility] Emergency Department [address] [place] [address] Stas Carey MD Abdominal pain (Primary Dx) [...] on file Legal Sex Female 10:08 PM [employer] [employer] Gender Identity Not on file Sexual Orientation Not on file Last Filed Vital Signs Vital Sign Reading Time Taken Comments Blood Pressure 130/89 08/03/2024 2:45 AM [employer] [employer]S Pulse 86 08/03/2024 3:10 AM [employer] Temperature 37 C (98.6 F) 08/03/2024 1:31 AM ENG[employer] [employer]S Respiratory Rate 18 08/02/2024 10:17 PM [employer] [employer]S Oxygen Saturation 100% 08/03/2024 3:10 AM ENGINE[facility] [employer]S Inhaled Oxygen Concentration - - Weight 68 kg (150 lb) 08/02/2024 10:14 PM [employer] [employer] Height 162.6 cm (5' 4 ) 08/02/2024 10:14 PM [employer] [employer] Body Mass Index 25.75 08/02/2024 10:14 PM [employer] [employer] Plan of Treatment Health Maintenance Due Date [...] PELVIS W CONTRAST ED 08/03/2024 4:03 AM ENGINEER [employer]S URINALYSIS, MICROSCOPIC ONLY Routine 08/03/2024 3:55 AM ENG[employer] [employer]S URINE CULTURE Routine 08/03/2024 3:55 AM ENG[employer] URINALYSIS AND REFLEX TO MICROSCOPIC AND CULTURE Routine 08/03/2024 3:55 AM ENGINE[facility] [employer] POCT HCG, URINE Routine 08/03/2024 3:38 AM [employer] EGFR STAT 08/03/2024 2:59 AM [employer] [employer]S DIFFERENTIAL AUTO STAT 08/03/2024 2:5 9 AM ENG[employer] [employer]S CBC WITH AUTO DIFFERENTIAL STAT 08/03/2024 2:59 AM [employer] [employer] COMPREHENSIVE METABOLIC PANEL STAT 08/03/2024 2:59 AM ENGINEER [employer]S from Last 3 Months Results * CT Abdomen Pelvis W Contrast (08/03/2024 4:03 AM ENGINEER [employer]ILS) Anatomical Region Laterality Modality Body N/A Computed Tomogra phy 08/03/2024 4:10 AM ENGINE[facility] [employer]ILS Narrative 08/03/2024 4:39 AM ENGINEER [employer]S EXAM DESCRIPTION: CT ABDOMEN PELVIS W CONTRAST [...] by Jane Lam M.D. SN: Report ID: [id number] Reading Location: [id number] Procedure Note Jane Lam MD - 08/03/2024 [...] Jane Lam M.D. SN: SN Report ID: [id number] Reading Location: [place] [address] Stas Carey MD [facility]ED[place] Final Result * (ABNORMAL) Urinalysis reflex to microscopic and culture Urine (08/03/2024 3:55 AM ENGINEER SOILS) Color, ur Yellow Yellow Clarity, ur Turbid(A) [...] formation. Source: [facility] Mod[facility]ound Current Interpretive Data was last revised on [...] [facility] ([place]) Urine 08/03/2024 3:55 AM ENGINEER SOILS 08/03/2024 3:58 AM ENGINEER SOILS us Stas Carey MD LAB MICROBIOLOGY - GENERAL ORD ERABLES Final Result [facility] ([place] 1 [facility] Department [place] [address] * (ABNORMAL) Urinalysis, microscopic only (08/03/2024 3:55 AM ENGINEER SOILS) WBC, ur 21-50(A) 0 - 5 /HPF RBC, ur 6-10(A) 0 - 2 /HPF [facility] ([place]) Epithelial cells, squamous, ur 21-50(A) 0 - 5 /HPF [facility] ([place]) Bacteria, ur 2+(A) [facility] ([place]) Mucous, ur Present(A) [facility] ([place]) Culture Reflex Comment Reflex to urine culture will be performed. [facility] ([place]) Urine 08/03/2024 3:55 AM ENGINEER SOILS 08/03/2024 3:58 AM ENGINEER SOILS Stas Carey MD LAB URINE ORDERABLES Final Res ult Performing Organization Address [facility] Co de Phone Number [facility] ([place]) [address] [facility] [place] [address] * Urine culture Urine (08/03/2024 3:55 AM ENGINEER [employer]ILS) Report Final Report: Less than 100,000 colonies/mL (clinically insignificant growth based on current clinical standards) Comment:Testing performed by : [facility], [address] [place] [address] Organism (CLINICALLY INSIGNIFICANT GROWTH [facility] ([place]) Urine 08/03/2024 3:55 AM ENGINEER SOILS 08/03/2024 6:30 AM ENGINEER SOILS Narrative [facility] ([place]) - 08/04/2024 11:19 AM ENGINEER SOILS Urine culture reflexed based upon urinalysis results. Testing performed by [facility] Laboratory ([phone]) Stas Carey MD LAB MICROBIOLOGY - GENERAL ORD ERABLES Final Result Performing Organization Address [facility] Co de Phone Number [facility] ([place]) [address] [place] [address] * POCT hCG, urine (08/03/2024 3:38 AM ENGINEER [employer]ILS) HCG, ur, POC Negative Negative Lot Number [id number] QC Backgroud Clear Acceptable QC Control Line Acceptable Urine 08/03/2024 3:38 AM ENGINEER SOILS Stas Carey MD POINT OF CARE TEST ORDERABLES Final Result * eGFR (08/03/2024 2:59 AM ENGINEER SOILS) eGFR >90 >=60 mL/min/1. 73 m2 Comment: [...] last reviewed 2021. Blood 08/03/2024 2:59 AM ENGINEER SOILS 08/03/2024 3:24 AM ENGINEER SOILS us Stas Carey MD LAB BLOOD ORDERABLES Final Res ult [facility] ([place]) 1 [facility] Department [place] [address] * (ABNORMAL) Differential, auto (08/03/2024 2:59 AM ENGINEER SOILS) Neutrophil abs 6.7(H) 1.5 - 6.5 K/cumm [...] revised on 2017. Blood 08/03/2024 2:59 AM ENGINEER [employer]ILS 08/03/2024 3:24 AM ENGINEER SOILS us Stas Carey MD LAB BLOOD ORDERABLES Final Res ult [facility] ([place]) 1 [facility] Department [place] [address] * (ABNORMAL) CBC with auto differential (08/03/2024 2:59 AM ENGINEER [employer]ILS) WBC 11.5(H) 3.8 - 9.9 K/cumm Hgb [...] RDW SD 40.6 35.7 - 48.1 fL [facility] ([place]) NRBC abs 0.00 0.00 - 0.01 K/cumm [facility] ([place]) Blood 08/03/2024 2:59 AM ENG[facility] [employer]ILS 08/03/2024 3:24 AM ENGINEER SOILS Stas Carey MD LAB BLOOD ORDERABLES Final Res ult [facility] ([place]) 1 [facility] Department of Laboratories [place] [id number] * (ABNORMAL) Comprehensive metabolic panel (08/03/2024 2:59 AM ENGINEER SOILS) Sodium 140 135 - 145 mmol/L Potassium, pl 3.9 3.3 - 4.9 mmol/L [facility] ([place] Comment:Moderately Hemolyzed Specimen. Results may be affected. Chloride 102 97 - 110 mmol/L [facility] ([place] CO2 21(L) 22 - 32 mmol/L [facility]) Anion gap 17(H) 2 - 15 mmol/L [facility] ([place]) BUN 7 6 - 25 mg/dL [facility] ([place]) Creatinine 0.73 0.60 - 1.10 mg/dL [facility] ([place]) Glucose 81 70 - 199 mg/dL [facility] ([place]) Comment: Interpretive Data Fasting glucose [...] 8.6(H) 6.5 - 8.5 g/dL [facility] ([place]) Albumin 5.3(H) 3.5 - 5.0 g/dL [facility] ([place]) Alk phos 88 40 - 130 Units/L [facility] ([place]) ALT 8 7 - 45 Units/L [facility] ([place]) Comment: Hemolysis present. Results may be affected. Moderately Hemolyzed Specimen AST 23 10 - 45 Units/L [facility] ([place]) Comment: Hemolysis present. Results may be affected. Moderately Hemolyzed Specimen Blood 08/03/2024 2:59 AM ENGINEER SOILS 08/03/2024 3:24 AM ENGINEER SOILS us Stas Carey MD LAB BLOOD ORDERABLES Final Res ult [facility] ([place]) 1 [facility] Department [place] [address] from Last 3 Months Insurance [facility] Care Teams Nail Specialist Relationship Specialty Start Date End Date Sebastian Clark MD [address] [place] [id number] PCP - General Family Medicine 08/03/24
[2024-09-09 02:24] LABS: Basophils Percent Auto 0.3 % (0.2-1.2); Eosinophils Absolute Auto 0.1 K/mm3 (0-0.3); Eosinophils Percent Auto 0.4 % (0-4.4); Hemoglobin 12.1 g/dL (12.0-15.0); Immature Granulocyte Absolute 0.07 K/mm3 (0.00-0.031); Immature Granulocyte Percent A 0.4 % (0-0.5); Lymphocytes Absolute Auto 2.71 K/mm3 (0.9-3.2); Mean Corpuscular HGB Conc 32.7 g/dl (32-36); Mean Corpuscular Hemoglobin 28.8 pg (26-34); Mean Corpuscular Volume 88.1 fl (80-100); Mean Platelet Volume 10.3 fl (7.4-10.4); Monocytes Absolute Auto 1.1 K/mm3 (0.1-0.6); Monocytes Percent Auto 6.8 % (2.6-8.5); Neutrophils Percent Auto 75.1 % (45.5-73.1); Platelet Count Result 308 k/mm3 (150-375); Red Cell Distribution Width 14.3 % (11.5-14.5)
[2024-09-09 02:35] LABS: Alanine Aminotransferase 11 U/L (6-35); Albumin Level 4.6 g/dL (3.5-5.1); Alkaline Phosphatase 70 U/L (38-126); Anion Gap 11 mmol/L (4-12); Aspartate Amino Transferase 22 U/L (14-36); Bilirubin,Total 0.8 mg/dL (0.2-1.3); Blood Urea Nitrogen 9 mg/dL (7-17); Calcium 9.3 mg/dL (8.4-10.2); Carbon Dioxide 22 mmol/L (22-30); Chloride 107 mmol/L (98-107); Estimated CRCL calculation 102 ml/min; Estimated Glomerular Filt Rate > 60; Glucose 88 mg/dL (65-110); Lipase 48 U/L (23-300); Potassium 3.5 mmol/L (3.4-5.0); Sodium 140 mmol/L (137-145)
[2024-09-09 02:59] LABS: BEDSIDEPREGUCG Negative (Negative)
[2024-09-09] MEDS: SODIUM CHLORIDE 0.9% IV 1,000 ML 999 ML IV CONT ×2 (03:11→04:46)
[2024-09-09] MEDS: HYDROmorphone HCL INJ (*CRX) 1 MG/ML SYR 0.5 MG IV PUSH (03:11)
[2024-09-09] MEDS: MAG HYDROX/AL HYDROX/SIMETH 30 ML UDC PO (03:12)
[2024-09-09] MEDS: FAMOTIDINE 20 MG/2 ML VIAL IV PUSH (03:12)
[2024-09-09 03:19] LABS: Add Urine Microscopic? YES; Appearance Urine Turbid (Clear); Bacteria Urine 4+ /hpf; Bilirubin Urine Negative (Negative); Blood Urine Negative (Negative); Color Urine Yellow (Yellow); Glucose Urine UA Negative (Negative); Ketones Urine 1+ mg/dL (Negative); Leukocyte Esterase Ur 2+ LEU/UL (Negative); Mucus Urine Present /lpf; Need Manual Microscopic Reviewed; Nitrate Urine Negative (Negative); Non Pathogenic Casts 0-2; Protein Urine 2+ mg/dL (Negative); Specific Grav Ur 1.029 (1.001-1.035); Squamous Epithelial Cell Urine Many /hpf (Few); WBC Urine 51-100 /hpf (0-3); pH Urine 8.5 (5.0-9.0)
--- NOTE | 2024-09-09 04:00 | ED.GENADULT ---
HPI - General Adult General Chief complaint: Abdominal Pain Stated complaint: abd pain Time Seen by Provider: 09/09/24 01:29 History of Present Illness HPI narrative: This is a 23-year-old female presenting ED with chief complaint of abdominal pain x24hrs. Patient says that her pain is in the right upper quadrant and radiates to side. It is sharp pain. It is moderate intensity and constant. No associated fevers, nausea vomiting diarrhea. No urinary symptoms. History of cholecystectomy Related Data Allergies Allergy/AdvReac Type Severity Reaction Status Date / Time coconut Allergy unknown Verified 09/09/24 00:25 latex Allergy unknown Verified 09/09/24 00:25 [facility] Surgical History Surgical History History of cholecystectomy age 19yo, [facility] ([place]) History of tonsillectomy and adenoidectomy Exam Narrative: APPEARANCE: No apparent distress. Head: atraumatic. EYES: EOMI, NOSE: Atraumatic NECK: Trachea midline RESPIRATORY: No increased rate of breathing CARDIOVASCULAR: RRR, ABDOMINAL: Tenderness in right side of the abdomen without guarding rebound MUSCULOSKELETAl: No obvious deformities NEURO: Alert. Moving 4/4 extremities SKIN:: Warm, dry. Normal color PSYCHIATRIC: Normal affect Course Vital Signs Vital signs: Vital Signs Temperature 98.7 F 09/09/24 00:28 Pulse Rate 80 09/09/24 00:28 Respiratory Rate 20 09/09/24 00:28 Blood Pressure 139/68 09/09/24 00:28 Pulse Oximetry 100 09/09/24 00:28 Oxygen Delivery Room Air 09/09/24 00:28 Temperature 98.7 F 09/09/24 00:28 Pulse Rate 93 09/09/24 03:46 Respiratory Rate 17 09/09/24 03:46 Blood Pressure 122/80 09/09/24 03:46 Pulse Oximetry 100 09/09/24 03:46 Oxygen Delivery Room Air 09/09/24 00:28 Medical Decision Making [facility] Narrative Medical decision making narrative: -Course: 23-year-old female presenting right-sided abdominal pain. CT abdomen pelvis shows appendicitis. White count 16. Vital signs stable. Started on picked his own given fluid resuscitation pain control. Case was discussed with Dr. Wade. He will take her to surgery at some point today. She has been made NPO. P.r.n. pain and nausea meds please. -DDX includes but is not limited to: Appendicitis, gastroenteritis, colitis -Co-morbidities complicating care: History of cholecystectomy Vital Signs Vital Signs: Vital Signs Temperature 98.7 F 09/09/24 00:28 Pulse Rate 80 09/09/24 00:28 Respiratory Rate 20 09/09/24 00:28 Blood Pressure 139/68 09/09/24 00:28 Pulse Oximetry 100 09/09/24 00:28 Oxygen Delivery Room Air 09/09/24 00:28 Temperature 98.7 F 09/09/24 00:28 Pulse Rate 93 09/09/24 03:46 Respiratory Rate 17 09/09/24 03:46 Blood Pressure 122/80 09/09/24 03:46 Pulse Oximetry 100 09/09/24 03:46 Oxygen Delivery Room Air 09/09/24 00:28 Lab Data 09/09/24 02:18 09/09/24 02:18 Labs: Lab Results 09/09/24 09/09/24 09/09/24 Range/Units 01:34 02:18 02:52 WBC 16.0 H (4.5-10.0) K/mm3 RBC 4.20 (4.2-5.4) M/mm3 Hgb 12.1 (12.0-15.0) g/dL Hct 37.0 (37.0-47.0) % MCV 88.1 (80-100) fl MCH 28.8 (26-34) pg MCHC 32.7 (32-36) g/dl RDW 14.3 (11.5-14.5) % Plt Count 308 (150-375) k/mm3 MPV 10.3 (7.4-10.4) fl Immature Gran % (Auto) 0.4 (0-0.5) % Neut % (Auto) 75.1 H (45.5-73.1) % Lymph % (Auto) 17.0 L (18.3-44.2) % [place] % (Auto) 6.8 (2.6-8.5) % Eos % (Auto) 0.4 (0-4.4) % Baso % (Auto) 0.3 (0.2-1.2) % Lymph # (Auto) 2.71 (0.9-3.2) K/mm3 [place] # (Auto) 1.1 H (0.1-0.6) K/mm3 Eos # (Auto) 0.1 (0-0.3) K/mm3 Baso # (Auto) 0.0 (0.0-0.1) K/mm3 Abs Immat Gran (auto) 0.07 H (0.00-0.031) K/mm3 Absolute Neuts (auto) 12.0 H (1.3-6.7) K/mm3 Absolute Nucleated RBC 0.000 (0.0-0.012) K/mm3 Nucleated RBC % 0.0 (0.0-0.2) % Sodium 140 (137-145) mmol/L Potassium 3.5 (3.4-5.0) mmol/L Chloride 107 (98-107) mmol/L Carbon Dioxide 22 (22-30) mmol/L Anion Gap 11 (4-12) mmol/L BUN 9 (7-17) mg/dL Creatinine 0.76 (0.7-1.0) mg/dL Estim Creat Clear Calc 102 ml/min Estimated GFR > 60 (59 - ) Glucose 88 (65-110) mg/dL Calcium 9.3 (8.4-10.2) mg/dL Total Bilirubin 0.8 (0.2-1.3) mg/dL AST 22 (14-36) U/L ALT 11 (6-35) U/L Alkaline Phosphatase 70 (38-126) U/L Total Protein 8.0 (6.3-8.2) g/dL Albumin 4.6 (3.5-5.1) g/dL Lipase 48 (23-300) U/L Urine Color Yellow (Yellow) Urine Appearance Turbid H (Clear) Urine pH 8.5 (5.0-9.0) Ur Specific [place] 1.029 (1.001-1.035) Urine Protein 2+ H (Negative) mg/dL Urine Glucose (UA) Negative (Negative) mg/dL Urine Ketones 1+ H (Negative) mg/dL Ur Blood (Man) Negative (Negative) Urine Nitrate Negative (Negative) Urine Bilirubin Negative (Negative) Urine Urobilinogen 1.0 (<2.0) mg/dL Add Ur Microanalysis Reviewed Leukocyte Esterase Rfl 2+ H (Negative) ANA ROSA/UL Urine RBC 6-10 H (0-2) /hpf Urine WBC 51-100 H (0-3) /hpf Ur Squamous Epith Cells Many H (Few) /hpf Urine Bacteria 4+ H /hpf Urine Casts 0-2 Urine Mucus Present /lpf POC Urine HCG, Qual Negative (Negative) 09/09/24 Range/Units 02:57 WBC (4.5-10.0) K/mm3 RBC (4.2-5.4) M/mm3 Hgb (12.0-15.0) g/dL Hct (37.0-47.0) % MCV (80-100) fl MCH (26-34) pg MCHC (32-36) g/dl RDW (11.5-14.5) % Plt Count (150-375) k/mm3 MPV (7.4-10.4) fl Immature Gran % (Auto) (0-0.5) % Neut % (Auto) (45.5-73.1) % Lymph % (Auto) (18.3-44.2) % [place] % (Auto) (2.6-8.5) % Eos % (Auto) (0-4.4) % Baso % (Auto) (0.2-1.2) % Lymph # (Auto) (0.9-3.2) K/mm3 [place] # (Auto) (0.1-0.6) K/mm3 Eos # (Auto) (0-0.3) K/mm3 Baso # (Auto) (0.0-0.1) K/mm3 Abs Immat Gran (auto) (0.00-0.031) K/mm3 Absolute Neuts (auto) (1.3-6.7) K/mm3 Absolute Nucleated RBC (0.0-0.012) K/mm3 Nucleated RBC % (0.0-0.2) % Sodium (137-145) mmol/L Potassium (3.4-5.0) mmol/L Chloride (98-107) mmol/L Carbon Dioxide (22-30) mmol/L Anion Gap (4-12) mmol/L BUN (7-17) mg/dL Creatinine (0.7-1.0) mg/dL Estim Creat Clear Calc ml/min Estimated GFR (59 - ) Glucose (65-110) mg/dL Calcium (8.4-10.2) mg/dL Total Bilirubin (0.2-1.3) mg/dL AST (14-36) U/L ALT (6-35) U/L Alkaline Phosphatase (38-126) U/L Total Protein (6.3-8.2) g/dL Albumin (3.5-5.1) g/dL Lipase (23-300) U/L Urine Color (Yellow) Urine Appearance (Clear) Urine pH (5.0-9.0) Ur Specific [place] (1.001-1.035) Urine Protein (Negative) mg/dL Urine Glucose (UA) (Negative) mg/dL Urine Ketones (Negative) mg/dL Ur Blood (Man) (Negative) Urine Nitrate (Negative) Urine Bilirubin (Negative) Urine Urobilinogen (<2.0) mg/dL Add Ur Microanalysis Leukocyte Esterase Rfl (Negative) ANA ROSA/UL Urine RBC (0-2) /hpf Urine WBC (0-3) /hpf Ur Squamous Epith Cells (Few) /hpf Urine Bacteria /hpf Urine Casts Urine Mucus /lpf POC Urine HCG, Qual Negative (Negative) Discharge Plan Discharge Clinical Impression: Acute appendicitis Patient Disposition: Home, Self-Care Condition: Stable Instructions: Antibiotic Form Patient Language: Belarusian Prescriptions: No Action sulfamethoxazole-trimethoprim [Bactrim] 400-80 mg tablet 1 tablet PO HS 5 Days Qty: 5 0RF ibuprofen 600 mg tablet 600 mg PO TID PRN (Reason: pain) Qty: 20 0RF acetaminophen 500 mg capsule 500 mg PO Q6H PRN (Reason: pain) Qty: 20 0RF Follow-up/Referrals: UNKNOWN,DOCTOR [Primary Care Provider] -
[2024-09-09] MEDS: PIPERACILLN/TAZ 3.375GM/NS50ML 3.375 GM/50 ML BAG IVPB ×2 (04:45→12:08)
[2024-09-09] MEDS: SODIUM CHLORIDE 0.9% IV 1,000 ML 100 ML IV CONT (06:56)
--- NOTE | 2024-09-09 08:31 | ADMGEN ---
This patient, Citlali Sharma, was admitted to [facility] Surg Room 303-01. Patient/family oriented to hospital policies and general routines including ID bracelet, bed and alarms, visiting hours, pain management, procedures, bathroom and other care routines, personal items, smoking policy, room service/diet, and visiting hours. Information on how to activate the Rapid Response Team has been discussed. Patient/Family are encouraged to report perceived risks to care and to ask questions if they do not understand what they are told or what they should do.
--- NOTE | 2024-09-09 12:39 | P.HP_ITS ---
H&P: HPI History of Present Illness Date/Time: 09/09/24 12:39 Chief Complaint: Acute appendicitis Narrative: Patient is a 23-year-old female who presented to the emergency room with a 2 day history of worsening lower abdominal pain which localized to right lower quadrant the abdomen. She had some versus nausea vomiting but no diarrhea. Upon workup in the emergency room she was found to have elevated white blood cell [id number]. CT scan of the abdomen and pelvis was then performed showing a dilated tubular structure up to 1.1cm in the right lower quadrant with some periappendiceal inflammatory changes consistent with a non perforated acute appendicitis. She is admitted to the hospital and started on Zosyn for IV antibiotics. She has been kept NPO. Her only previous abdominal surgery was a laparoscopic cholecystectomy about 4 years ago. Review of Systems Review of Systems: The remainder of the review of systems to include constitutional, HEENT, cardiovascular, respiratory, GI, , integumentary, musculoskeletal, endocrine, immunologic, hematologic, psychiatric, and neurologic are all negative except f or which is mentioned above in the HPI. [facility] Surgical History Surgical History History of cholecystectomy age 19yo, [facility] ([place]) History of tonsillectomy and adenoidectomy Family History Family History Grandparent Pelvic cancer Diabetes mellitus Heart failure Asthma [place] kidney Cholecystitis Obstructive sleep apnea Hypertension High cholesterol A-fib COPD (chronic obstructive pulmonary disease) Scoliosis Multiple sclerosis Mother Skin cancer (melanoma) Diabetes mellitus Asthma Hypertension High cholesterol Other S/p nephrectomy Social History Social History Smoking status: Current every day smoker Tobacco type: e-cigarettes/vaping Additional smoking assessment comments: vaping x 5 years Alcohol intake: never Substance use: current Substance use type: marijuana Last use: 09/07/24 Do You Feel Safe in your Home?: Yes Lack of Transportation: No Lack of Food: Never True Current Housing: I Have Housing Concerned About Future Housing: No Difficulty Paying Gas/Electric Bills: No Difficulty Paying for Meds: No Currently Unemployed: No Education: High School Diploma/GED Difficulty w/ Childcare or Family Care: No Spiritual care concerns: No Meds Home Medications and Allergies Home Medications ?Medication ?Instructions ?Recorded ?Confirmed ?Type No Home Medications 09/09/24 09/09/24 History Allergies Allergy/AdvReac Type Severity Reaction Status Date / Time coconut Allergy unknown Verified 09/09/24 09:29 latex Allergy unknown Verified 09/09/24 09:29 ondansetron (From Zofran) AdvReac Mild Nausea and Verified 09/09/24 09:29 Vomiting Vital Signs Vital Signs - 24 hr 09/09/24 00:28 09/09/24 01:26 09/09/24 03:46 Temperature 37.1 C Pulse Rate 80 80 93 Respiratory Rate 20 18 17 Blood Pressure 139/68 123/75 122/80 Pulse Oximetry 100 100 100 Oxygen Delivery Room Air 09/09/24 07:00 09/09/24 08:06 Temperature 36.6 C 36.6 C Pulse Rate 76 74 Respiratory Rate 16 16 Blood Pressure 124/76 118/68 Pulse Oximetry 99 99 Oxygen Delivery Exam Const: General: comfortable and no acute distress HENMT: Ears: TM's normal bilaterally Face/Nose/Sinus: Normal nares present Mouth: Yes moist mucous membranes Eyes: General: appearance normal, both eyes and all related structures Sclera: sclerae normal Pupils: Equal, round and reactive pupils present EOM: EOMs intact bilaterally Neck: Neck: supple and no JVD Resp: Effort & Inspection: normal respiratory effort Auscultation: clear to auscultation bilaterally Cardio: Rate: regular rate Rhythm: regular rhythm GI: Other: Abdomen is soft and nondistended. She has mild tenderness to palpation right lower quadrant the abdomen. There is no rebound tenderness. No guarding. She has well-healed laparoscopic incisions from her laparoscopic cholecystectomy. No incisional hernias are noted. Skin: General skin exam: normal color and no rashes or lesions noted Neuro: General: gait normal Speech: normal speech Motor exam (neuro): 5/5 motor strength present throughout Sensory Exam: normal sensation Extrem: General: normal to inspection Psych: Mental Status: mental status grossly normal Affect: normal affect H&P: Results Labs Labs: Short CBC 09/09/24 Range/Units 02:18 WBC 16.0 H (4.5-10.0) K/mm3 Hgb 12.1 (12.0-15.0) g/dL Hct 37.0 (37.0-47.0) % Plt Count 308 (150-375) k/mm3 BMP 09/09/24 02:18 Sodium 140 Potassium 3.5 Chloride 107 Carbon Dioxide 22 BUN 9 Creatinine 0.76 Glucose 88 Calcium 9.3 Liver Function 09/09/24 Range/Units 02:18 Total Bilirubin 0.8 (0.2-1.3) mg/dL AST 22 (14-36) U/L ALT 11 (6-35) U/L Alkaline Phosphatase 70 (38-126) U/L Albumin 4.6 (3.5-5.1) g/dL Urine 09/09/24 Range/Units 02:52 Urine Color Yellow (Yellow) Urine Appearance Turbid H (Clear) Urine pH 8.5 (5.0-9.0) Ur Specific [place] 1.029 (1.001-1.035) Urine Protein 2+ H (Negative) mg/dL Urine Glucose (UA) Negative (Negative) mg/dL Assessment and Plan Assessment and plan (1) Acute appendicitis: Code(s): K35.80 - Unspecified acute appendicitis Status: Acute Assessment and Plan: Patient appears to have an uncomplicated non perforated acute appendicitis. She has been started on Zosyn for IV antibiotics. Keep her NPO. I have discussed with her proceeding with a urgent laparoscopic appendectomy later this afternoon. She has agree with proceeding with surgery. Risks, benefits, indications, and expected outcomes were discussed in detail with the patient and/or family. They understand and I have answered all other questions. They wished to proceed with surgery as outlined above.
--- NOTE | 2024-09-09 12:43 | WPDHPUPDATE1 ---
History and Physical Update Update Date/Time: 09/09/24 12:43 History and Physical has been reviewed, including an updated exam of the patient. There are NO changes in the patient's condition. Risks, benefits, and alternatives have been discussed and questions answered. Patient agrees to proceed with procedure.
[2024-09-09] MEDS: LACTATED RINGERS 1,000 ML 30 ML IV CONT ×2 (15:02→16:55)
[2024-09-09] MEDS: BUPivacaine HCL 0.5% PF 30 ML VIAL INFILTRATE (15:27)
[2024-09-09] MEDS: LIDO 1%/EPINEPHRINE 1:100,000 20 ML VIAL 30 ML INFILTRATE (15:27)
[2024-09-09] MEDS: KETOROLAC 30 MG/ML VIAL (*BKC) IV PUSH (16:32)
--- NOTE | 2024-09-09 16:57 | P.OP_ITS ---
Procedure Note - Detailed Date of Procedure 09/09/24 Pre-op Diagnosis Acute Appendicitis Post-op Diagnosis Same Procedure Performed Laparoscopic appendectomy Surgeon Steven Wade MD Computer System Specialist RACHEL Bell Anesthesia General Indications Paste a 23-year-old female who presented to the emergency room with a 2 day history of worsening right lower quadrant abdominal pain. She had leukocytosis of 16,000 in the emergency room a CT scan abdomen pelvis showed a dilated appendix with a diameter of 1.1cm and some periappendiceal inflammation consistent with acute appendicitis. There is no evidence of perforation. There is no periappendiceal abscess. She presents now an urgent laparoscopic appendectomy. Findings The appendix was moderately inflamed with dilation thickening and erythema throughout the distal 2/3 of the appendix. There was no gangrene the appendix and no perforation. There is no periappendiceal abscess. Description of Procedure After informed consent was obtained patient was then brought to the operating room she was placed supine position and general endotracheal anesthesia was administered. An orogastric tube was placed to decompress the stomach. A Power catheter was then placed to decompress the bladder. The abdomen was then prepped and draped usual sterile fashion. A time-out was then performed correctly identifying the patient as well as procedure to be performed. She was already on scheduled IV antibiotics. I entered the abdomen in the left upper quadrant utilizing a 5mm Optiview port. Once inside the abdomen insufflated to adequate pneumoperitoneum of 15mmHg of CO2. There were no adhesions to obscure my view of the right lower quadrant the abdomen. I then placed a 12mm periumbilical trocar port as well as a 5mm suprapubic trocar port and a 5mm right lower quadrant trocar port all under direct visualization. The appendix was identified the right lower quadrant the abdomen. There was some peritoneal attachments to the appendix to the lower right lateral abdominal wall. With laparoscopic grasper I was able to hold up the appendix and then divide these peritoneal attachments of the appendix to the lateral right abdominal wall. I was then able to a identified the base of the appendix and made a defect through the mesoappendix just at the base with a laparoscopic dissector. I then used a 45mm Endo-ESTHER stapler to divide the appendix flush with the cecum. A vascular load to the same Endo-ESTHER stapler was then used to divide the mesoappendix. A small amount of bleeding from the appendiceal artery and mesoappendix. This was treated electrocautery and hemostasis was achieved. The appendix was then placed into an Endo-Catch bag and brought out through the periumbilical trocar port fascial defect. It was sent off table sent to pathology for examination. I then irrigated out the right lower quadrant the abdomen and the appendiceal stump and mesoappendix staple lines. Hemostasis was good and stabilized. I th en aspirated the fluid and the blood clot from the right lower quadrant the abdomen and the pelvis. I then placed granulated Surgicel powder as a topical hemostatic agent in the area the appendiceal stump and mesoappendix staple line. I then removed the ports under direct visualization all port sites appeared hemostatic. I then allowed the abdomen decompress. The 12mm periumbilical trocar port fascial defect was then closed at the fascial level utilizing 0 Vicryl suture at the fascia. The skin edges in all the port sites were then approximated utilizing a running subcuticular 4-0 Monocryl suture. The incisions were then cleaned the skin glue was applied. At the end of the procedure the Power catheter was removed as well. The patient tolerated the procedure well no complications. All sponges, needles, and instrument counts were correct at the end procedure. EBL was _30__cc. The patient was awakened and taken to recovery in stable and satisfactory condition. Implants None Estimated Blood Loss 30 Drains No Packing No Pathology Yes (Appendix to pathology) Complications No immediate complications Condition Stable Disposition PACU [facility] Billing Surgery - Charge Forward: Surgery Billing
[2024-09-09] MEDS: fentaNYL CITRATE INJ (*CRX) 100 MCG/2 ML VIAL 25 MCG IV PUSH ×2 (17:29→17:39)
[2024-09-09] MEDS: LACTATED RINGERS 1,000 ML 100 ML IV CONT (18:27)
[2024-09-09] MEDS: oxyCODONE HCL (*CRX) 5 MG TAB IR PO (20:36)
[2024-09-10] VITALS: BP 113/55; PULSE 98; RESP 18; TEMP 36.8; O2SAT 18
[2024-09-10] MEDS: oxyCODONE HCL (*CRX) 5 MG TAB IR PO (00:54)
[2024-09-10 04:00] VITALS: BP 123/65; PULSE 71; RESP 18; TEMP 36.8; O2SAT 98
[2024-09-10] MEDS: LACTATED RINGERS 1,000 ML 100 ML IV CONT (04:26)
[2024-09-10 08:00] VITALS: BP 108/53; PULSE 85; RESP 14; TEMP 36.1; O2SAT 100
[2024-09-10] MEDS: HYDROcodone/acetaminophen (*CRX) 5-325 MG TABLET 1 TAB PO (10:13)
--- NOTE | 2024-09-10 10:57 | P.DS_ITS ---
DS: Admitting Diagnosis Discharge Date September 10, 2024 Admitting Diagnosis Acute appendicitis DS: Discharge Diagnosis Discharge Diagnosis (1) Acute appendicitis: Code(s): K35.80 - Unspecified acute appendicitis Status: Acute DS: Summary Hospital Course Reason for hospitalization: Patient presents to the hospital with worsening lower abdominal pain that localized right lower quadrant the abdomen. She had an elevated white blood count [id number]. Physical exam showed tenderness the right lower quadrant area of McBurney's point. CT scan abdomen pelvis was then performed showing a dilated appendix up to 1.1cm. There is periappendiceal inflammation consistent with a non perforated acute appendicitis. Hospital Course: Patient was initially seen evaluated in the emergency room. I reviewed her CT scan images and her labs. I examined her and she indeed had an exam consistent with acute appendicitis. She was then admitted to the surgical floor and kept NPO. She was on Zosyn for IV antibiotics. Later in the day she was then taken to the operating room where she underwent an uncomplicated laparoscopic appendectomy. Postoperatively her request recovery room was uneventful and then she was transferred back to the surgical floor. Overnight she did well and tolerated liquids and advanced to solid food. Her pain was well controlled with [place] for pain medications. She service and spirometer and was urinating fine. No fever or tachycardia was noted. Her incisions appear to be healing well without any redness or drainage. No bleeding. Postop day #1, She was discharged home in improved condition. Status at Discharge Functional status at discharge: independent ambulation Overall status at discharge: patient is progressing back to baseline Time Spent with Patient Time attestation: Total time spent providing and/or coordinating discharge services: Time spent: Less than 30 minutes Specific discharge activities: See discharge instructions Exam GI: Other: Abdomen is soft and nondistended. Port site incisions are healing well. No redness or drainage no bleeding. Tenderness around the port site incisions. Right lower quadrant tenderness is not resolved. DS: Data Data Completed and Pending Pending studies at discharge: Pending at discharge 09/09/24 16:18 Surgical [PTH] Routine Discharge Plan Discharge Attending physician on discharge: Steven Wade Discharging Clinician: Steven Wade Patient Disposition: Home, Self-Care Activity: other - see discharge instructions Diet: as tolerated Wound Care Instructions: other - see discharge instructions Discharge Instructions: May discharge home when stable. Follow up with Dr. Wade in the office in 2 weeks. Patient to call [phone] for an appointment. May shower in 24hours but do not soak incisions under water for 2 weeks. No lifting more than 10 to 15 lb for 2 weeks. May advance diet as tolerated. No driving for at least 3 days or until no longer taking any narcotic pain medication. Resume all home medications. Prescription for narcotic pain medicines will be sent to the patient's pharmacy if needed. May use Tylenol and/or ibuprofen in addition to or in place of narcotic pain medications for postoperative pain. Patient Instructions: Antibiotic Form Patient Language: Czech Stand Alone Forms: General Discharge Information Follow-up/Referrals: Steven Wade MD [Physician] - Discharge Medications: New hydrocodone-acetaminophen 5-325 mg tablet 1 tablet PO Q4H PRN (Reason: pain) Qty: 15 0RF Date of admission: 09/09/24 05:29 Primary Care Provider: UNKNOWN,DOCTOR Admitting Provider: Ashish Vail Attending physician on admission: Ashish Vail Condition: Stable
== END 2024-09-10 12:15 | disposition home or self-care (01) | DRG 234 ==
LOC: ANHED 07:14 → ANH3MEDSUR 14:08
PROVIDERS: Admitting Provider Surgery; Emergency Provider Emergency Medicine; Visit Provider Surgery
PROC: 0DTJ4ZZ Resection of Appendix, Percutaneous Endoscopic Approach (ICD-10-PCS; CPT 44970; principal; 2024-09-09 15:00)
DX: K35.80 Unspecified acute appendicitis (principal); F17.290 Nicotine dependence, other tobacco product, uncomplicated
CPT/HCPCS: 36415; 74177; 80053; 81001; 81025; 83690; 85025; 88304; 96361; 96365; 96375; 96376; 99285; A9270; J1100; J1171; J1885; J2004; J2250; J2405; J2543; J2704; J3010; J7030; J7120; Q9967